=== PATIENT | female | born 1980 | race American Indian/Alaskan Native ===

== ENCOUNTER 2016-09-17 10:26 | Outpatient (CLI) | payer MEDICAID ==
--- NOTE | 2016-09-17 16:50 | Vascular Lab Report ---
Right Lower Extremity Venous Duplex Study: Reason for Exam: Pain of the right lower extremity. Comments on the Right: All veins visualized are freely compressible without evidence of internal echogenicity. Flow is spontaneous and phasic throughout. No evidence of acute or chronic thrombus is seen in any of the vessels visualized. Comments on the Left: A limited duplex study was done of the proximal veins of the left lower extremity. All veins visualized are freely compressible without evidence of internal echogenicity. Flow is spontaneous and phasic throughout. No evidence of acute or chronic thrombus is seen in any of the vessels visualized. Impression: No evidence of acute or chronic deep venous thrombosis in the right lower extremity.
== END 2016-09-17 10:27 | disposition home or self-care (01) ==
LOC: VAS 10:26
PROVIDERS: ATTEND Internal Medicine
DX: M79.604 Pain in right leg (principal); M25.571 Pain in right ankle and joints of right foot; R22.41 Localized swelling, mass and lump, right lower limb